=== PATIENT | female | born 1985 | race Caucasian/White ===

== ENCOUNTER 2022-11-29 14:04 | Inpatient (IN) | payer BC ==
[2022-11-29 16:20] LABS: POTASSIUM,K 3.6 mmol/L (3.5-5.1)
[2022-11-29] MEDS ORDERED: Butorphanol 1 MG/ML SDV IVPUSH PRN (17:06)
[2022-11-29] MEDS ORDERED: Lidocaine 1% 50 ML MDV INJECT PRN (17:06)
[2022-11-29] MEDS ORDERED: Misoprostol 200 MCG Tab PO PRN (17:06)
[2022-11-29] MEDS ORDERED: Sodium Chloride 0.9% 2.5 ML Syringe FLUSH PRN (17:06)
[2022-11-29] MEDS ORDERED: Sodium Chloride 0.9% 10 ML Syringe FLUSH PRN (17:06)
[2022-11-29] MEDS ORDERED: Misoprostol 25 MCG (1/4 of 100 MCG) Tab VAG PRN (17:06)
[2022-11-29] MEDS ORDERED: Methylergonovine 0.2 MG/1 ML Amp IM PRN (17:06)
[2022-11-29] MEDS ORDERED: Sodium Chloride 0.9% 20 ML SDV IV PRN (17:06)
[2022-11-29] MEDS ORDERED: Tranexamic Acid 1,000 MG in Sodium Chloride 0.9% 100 ML IV PRN (17:06)
[2022-11-29] MEDS ORDERED: Water For Irrigation,Sterile 1,000 ML Container IRR PRN (17:06)
[2022-11-29] MEDS ORDERED: Terbutaline 1 MG/ML SDV SUBCUT PRN (17:06)
[2022-11-29] MEDS ORDERED: Carboprost Tromethamine 250 MCG/1 ML Amp IM PRN (17:06)
[2022-11-29] MEDS ORDERED: Lactated Ringers 1,000 ML IV SCH (17:15)
[2022-11-29] MEDS ORDERED: Oxytocin/0.9 % Sodium Chloride 30 UNIT/500 ML BAG IV SCH (17:15)
[2022-11-29] MEDS ORDERED: Vancomycin 2 GM in Sodium Chloride 0.9% 500 ML IV ONE (20:30)
[2022-11-29] MEDS ORDERED: Acetaminophen 500 MG Tab PO PRN (21:03)
[2022-11-29] MEDS ORDERED: Acetaminophen 500 MG Tab ONE (21:08)
[2022-11-29] MEDS: Misoprostol 25 MCG (1/4 of 100 MCG) Tab VAG PRN (21:13)
[2022-11-30] MEDS: Misoprostol 25 MCG (1/4 of 100 MCG) Tab VAG PRN (01:26)
[2022-11-30] MEDS ORDERED: Ibuprofen 400 MG Tab PO PRN (07:46)
[2022-11-30] MEDS ORDERED: oxyCODONE 5 MG Tab PO PRN (07:46)
[2022-11-30] MEDS ORDERED: Acetaminophen 500 MG Tab PO PRN (07:46)
[2022-11-30] MEDS ORDERED: Docusate Sodium 100 MG Cap PO PRN (07:46)
[2022-11-30] MEDS ORDERED: Bisacodyl 10 MG Supp RECTAL PRN (07:46)
[2022-11-30] MEDS ORDERED: Benzocaine/Menthol 20%-0.5% Spray 78 GM Cannister TOP PRN (07:46)
[2022-11-30] MEDS ORDERED: Lanolin 100% Cream 7 GM Tube TOP PRN (07:46)
[2022-11-30] MEDS: Witch Hazel Medicated Pads 40/Jar TOP PRN (08:02)
[2022-11-30] MEDS: Acetaminophen 500 MG Tab PO PRN ×2 (08:05→15:03)
[2022-11-30] MEDS: Ibuprofen 800 MG Tab PO PRN ×3 (08:06→20:40)
[2022-12-01] MEDS: Witch Hazel Medicated Pads 40/Jar TOP PRN (04:01)
[2022-12-01 05:59] LABS: CARBON DIOXIDE,CO2 23.5 mmol/L (21.0-32.0)
== END 2022-12-01 11:00 | disposition home or self-care (01) | DRG 560 ==
LOC: MW.OBCHECK 14:04 → MW.OB 14:05 → MW.OBCHECK 17:06 → OBSVTOIN 11-30 07:07 → MW.OB 11-30 11:00
PROVIDERS: ADMIT Obstetrics & Gynecology; ATTEND Obstetrics & Gynecology
PROC: 10E0XZZ Delivery of Products of Conception, External Approach (ICD-10-PCS; principal; 2022-11-30)
PROC: 0KQM0ZZ Repair Perineum Muscle, Open Approach (ICD-10-PCS; 2022-11-30)
PROC: 3E0P7VZ Introduction of Hormone into Female Reproductive, Via Natural or Artificial Opening (ICD-10-PCS; 2022-11-30)
DX: O14.04 Mild to moderate pre-eclampsia, complicating childbirth (principal); Z3A.37 37 weeks gestation of pregnancy; Z37.0 Single live birth; O99.214 Obesity complicating childbirth; O70.1 Second degree perineal laceration during delivery; O69.81X0 Labor and delivery complicated by cord around neck, without compression, not applicable or unspecified; Z20.822 Contact with and (suspected) exposure to COVID-19
CPT/HCPCS: 36415; 59025; 59409; 80053; 82570; 84156; 84550; 85025; 85027; 86592; 86850; 86900; 86901; A9270-GY; J0595; J2001; J2590; J3370; J7040; J7120; U0002

== ENCOUNTER 2025-01-02 13:56 | Emergency (ER) | payer BC ==
[2025-01-02] MEDS ORDERED: Sodium Chloride 0.9% 10 ML Syringe FLUSH PRN (16:15)
[2025-01-02] MEDS ORDERED: Sodium Chloride 0.9% 2.5 ML Syringe FLUSH PRN (16:15)
[2025-01-02] MEDS: Ondansetron 4 MG/2 ML SDV IVPUSH STA (16:49)
[2025-01-02] MEDS: Sodium Chloride 0.9% 1,000 ML IV STA (16:49)
[2025-01-02] MEDS: Ketorolac 30 MG/ML SDV IVPUSH STA (16:50)
[2025-01-02 17:06] LABS: BASOPHILS ABSOLUTE AUTO 0.02 K/uL (0.00-0.20); BASOPHILS PERCENT AUTO 0.2 % (0.0-1.0); EOSINOPHILS ABSOLUTE AUTO 0.06 K/uL (0.00-0.45); EOSINOPHILS PERCENT AUTO 0.6 % (0.0-6.0); HEMOGLOBIN 12.7 g/dL (12.0-16.0); IMMATURE GRAN ABSOLUTE AUTO 0.03 K/uL (0.00-0.05); IMMATURE GRAN PERCENT AUTO 0.3 % (0.0-0.4); LYMPHOCYTES ABSOLUTE AUTO 1.18 K/uL (1.00-4.80); LYMPHOCYTES PERCENT AUTO 11.9 % (24.0-44.0); MEAN CORPUSCULAR HEMOGLOBIN 29.5 pg (28.0-32.0); MEAN CORPUSCULAR HGB CONC 32.6 g/dL (32.0-36.0); MEAN CORPUSCULAR VOLUME 90.5 fL (83.0-99.0); MEAN PLATELET VOLUME 11.3 fL (9.4-12.3); MONOCYTES ABSOLUTE AUTO 0.85 K/uL (0.00-0.80); MONOCYTES PERCENT AUTO 8.6 % (0.0-8.0); NEUTROPHILS ABSOLUTE AUTO 7.76 K/uL (1.80-7.70); NEUTROPHILS PERCENT AUTO 78.4 % (41.0-71.0); PLATELET COUNT,PLT 228 K/uL (150-400); RED BLOOD CELL COUNT 4.31 M/uL (4.10-5.30)
[2025-01-02 17:06] LABS: BILIRUBIN,URINE NEGATIVE (NEGATIVE); COLOR,URINE YELLOW; GLUCOSE,URINE NEGATIVE (NEGATIVE); KETONES,URINE 40 mg/dL (NEGATIVE); LEUKOCYTE ESTERASE,URINE NEGATIVE (NEGATIVE); NITRITE,URINE NEGATIVE (NEGATIVE); OCCULT BLOOD,URINE SMALL (NEGATIVE); PROTEIN,URINE 30 mg/dL (NEGATIVE)
[2025-01-02 17:22] LABS: APPEARANCE,URINE HAZY
[2025-01-02 17:24] LABS: BACTERIA,URINE FEW (NEGATIVE); EPITHELIAL CELLS,URINE OCCASIONAL (NONE-FEW); RBC,URINE 0-3 (0-2/HPF); WBC,URINE 0-2 (0-5/HPF)
[2025-01-02 17:31] LABS: A/G RATIO 1.1 (0.9-1.6); ALBUMIN 3.9 g/dL (3.4-5.0); BILIRUBIN TOTAL 0.4 mg/dL (0.2-1.0); CALCIUM 8.7 mg/dL (8.5-10.1); CARBON DIOXIDE,CO2 24.5 mmol/L (21.0-32.0); CREATININE 0.9 mg/dL (0.6-1.0); EST CRCL DRUG DOSING (CG) 101.87 mL/min; POTASSIUM,K 3.3 mmol/L (3.5-5.1); PROTEIN TOTAL,TP 7.4 g/dL (6.4-8.2)
[2025-01-02] MEDS: Doxycycline 100 MG Cap PO STA (18:29)
== END 2025-01-02 18:53 | disposition home or self-care (01) ==
LOC: MW.ED 13:56
DX: R55 Syncope and collapse (principal); J18.9 Pneumonia, unspecified organism; Z88.0 Allergy status to penicillin; Z88.1 Allergy status to other antibiotic agents; Z88.8 Allergy status to other drugs, medicaments and biological substances; Z79.890 Hormone replacement therapy; Z79.51 Long term (current) use of inhaled steroids; Z79.899 Other long term (current) drug therapy; Z75.8 Other problems related to medical facilities and other health care
CPT/HCPCS: 36415; 70450; 71046; 72125; 80053; 81001; 83690; 83735; 84703; 85025; 86308; 87428; 93005; 96361; 96374; 96375; 99284; A9270; J1885; J2405; J7030; 93010; 99283

== ENCOUNTER 2025-09-17 10:57 | Day surgery (SDC) | payer BC ==
[~2025-09-17 10:57] MED LIST: Lactated Ringers 1,000 ML IV SCH; Sodium Chloride 0.9% 10 ML Syringe FLUSH PRN; Sodium Chloride 0.9% 2.5 ML Syringe FLUSH PRN
[2025-09-17] MEDS ORDERED: propofoL 500 MG/50 ML 50 ML ONE ×2 (13:58→14:00)
== END 2025-09-17 15:00 | disposition home or self-care (01) ==
LOC: MW.SDS 10:57
PROVIDERS: ATTEND Surgery
DX: K60.1 Chronic anal fissure (principal); F41.1 Generalized anxiety disorder; E03.9 Hypothyroidism, unspecified; Z88.8 Allergy status to other drugs, medicaments and biological substances; Z79.890 Hormone replacement therapy; Z79.899 Other long term (current) drug therapy
CPT/HCPCS: 45380; 81025; J2704